=== PATIENT | female | born 1970 | race African-American/Black ===

== ENCOUNTER 2019-01-31 17:45 | Inpatient (IN) ==
[2019-01-31] MEDS ORDERED: LACTATED RINGERS 500 ML IV STA (17:57)
[2019-01-31] MEDS ORDERED: ONDANSETRON 4 MG/2 ML VIAL IV STA (17:57)
[2019-01-31] MEDS ORDERED: DIPH/TET/ACEL PERT BOOSTER VACCINE 0.5 ML VIAL IM ONE (17:57)
[2019-01-31] MEDS ORDERED: HYDROmorphone 2 MG/1 ML VIAL IV STA (17:57)
[2019-01-31 18:10] LABS: Basophils % 0.2 % (0.0-0.8); Eosinophils # 0.1 10*3/uL (0.0-0.87); Eosinophils % 0.9 % (0.00-10.9); Hematocrit 35.2 VOL% (35.7-47.0); Hemoglobin 11.2 GM/DL (12.0-16.0); Immature Granulocytes % 1.1 %; Immature Granulocytes Absolute 0.11 #; Lymphocytes # 1.8 10*3/uL (1.4-4.0); Lymphocytes % 17.7 % (21.3-54.2); Mean Corpuscular HGB Conc 31.8 GM/DL (32-36); Mean Corpuscular Hemoglobin 30 PG (27-34); Mean Corpuscular Volume 92.9 FL (87-102); Mean Platelet Volume 10.4 FL (9.6-12.0); Monocytes # 0.6 10*3/uL (0.11-0.8); Monocytes % 5.8 % (1.7-12.7); Neutrophils # 7.4 10*3/uL (1.4-7.4); Neutrophils % 74.3 % (38.7-73.9); Platelet Count 172 T/CUMM (130-400); Red Blood Count 3.79 MC/CUMM (3.8-5.5); Red Cell Distribution Width 13.8 % (9.3-17.3)
[2019-01-31 18:21] LABS: PT Patient Result 10.7 SECS; Partial Thromboplastin Time 23.1 SECS (0-40)
[2019-01-31 18:37] LABS: Alanine Aminotransferase 34 U/L (13-56); Albumin 3.4 G/DL (3.4-5.0); Alkaline Phosphatase 78 U/L (45-117); Amylase 64 U/L (25-115); Aspartate Amino Transferase 49 U/L (0-37); Bilirubin,Total < 0.39 MG/DL (0.2-1.0); Blood Urea Nitrogen 10 MG/DL (7-18); Calcium 8.4 MG/DL (8.5-10.1); Glucose 126 MG/DL (74-106); Osmolality,Calculated 281.3 MOS/KG (273-304); Sodium 141 MMOL/L (136-145); Total Protein 7.2 G/DL (6.4-8.3); Troponin I < 0.015 NG/ML (0.00-0.045)
[2019-01-31] MEDS ORDERED: POTASSIUM CHLORIDE 20 MEQ TABLET PO STA (19:23)
[2019-01-31 19:50] LABS: Apearance,Urine Slightly Hazy (Clear); Bilirubin,Urine Negative (Negative); Blood, Urine Moderate mg/dL (Negative); Glucose,Urine (UA) Negative (Negative); Ketones,Urine Negative (Negative); Mucus,Urine Occasional /LPF (Occasional); Nitrite,Urine Negative (Negative); Protein,Urine 30 MG/DL; RBC,Urine 52 /HPF (0-4); Squamous Epithelial Cell,Urine Occasional /HPF (0-10); Urine Color Yellow (Yellow); Urine Specific Gravity > 1.060 (1.001-1.035); Urine Urobilinogen < 2.0 EU/DL (0.2-1.0); WBC,Urine 45 /HPF (0-6)
[2019-01-31 19:53] LABS: Barbiturates Screen,Urine Negative (Negative); Benzodiazepines Screen,Urine Negative (Negative); Cannabinoid Screen,Urine Positive (Negative); Opiate Screen,Urine Negative (Negative); Phencyclidine Screen,Urine Negative (Negative)
[2019-01-31] MEDS ORDERED: ACETAMINOPHEN 325 MG TABLET PO PRN (21:55)
[2019-01-31] MEDS ORDERED: HYDROmorphone 2 MG/1 ML VIAL IV PRN (21:55)
[2019-01-31] MEDS: SODIUM CHLORIDE 0.9% 1,000 ML IV SCH (22:46)
[2019-01-31] MEDS: LEVOFLOXACIN INJ 750 MG in PREMIX 1 EACH IV SCH (22:49)
[2019-02-01] MEDS: ONDANSETRON 4 MG/2 ML VIAL IV PRN ×3 (00:07→16:31)
[2019-02-01 05:58] LABS: Basophils % 0.1 % (0.0-0.8); Hematocrit 30.8 VOL% (35.7-47.0); Hemoglobin 9.8 GM/DL (12.0-16.0); Immature Granulocytes % 0.4 %; Immature Granulocytes Absolute 0.05 #; Lymphocytes # 1.5 10*3/uL (1.4-4.0); Lymphocytes % 10.6 % (21.3-54.2); Mean Corpuscular HGB Conc 31.8 GM/DL (32-36); Mean Corpuscular Hemoglobin 30 PG (27-34); Mean Corpuscular Volume 93.6 FL (87-102); Mean Platelet Volume 10.6 FL (9.6-12.0); Monocytes # 1.2 10*3/uL (0.11-0.8); Monocytes % 8.4 % (1.7-12.7); Neutrophils # 11.2 10*3/uL (1.4-7.4); Neutrophils % 80.5 % (38.7-73.9); Platelet Count 149 T/CUMM (130-400); Red Blood Count 3.29 MC/CUMM (3.8-5.5); White Blood Count 13.9 T/CUMM (4-12)
[2019-02-01 06:25] LABS: Bilirubin,Total 0.5 MG/DL (0.2-1.0); Osmolality,Calculated 282.3 MOS/KG (273-304); Potassium 3.4 MMOL/L (3.5-5.1); Total Protein 6.8 G/DL (6.4-8.3)
[2019-02-01] MEDS ORDERED: ceFAZolin 1,000 MG in SYRINGE 1 EACH IV ONE (07:17)
[2019-02-01] MEDS ORDERED: diphenhydrAMINE CAP 25 MG CAPSULE PO PRN (09:36)
[2019-02-01] MEDS ORDERED: BISACODYL 10 MG SUPP RECTAL PRN (09:36)
[2019-02-01] MEDS ORDERED: PROMETHAZINE 25 MG/1 ML VIAL IM PRN (09:36)
[2019-02-01] MEDS ORDERED: LACTULOSE 20 GM/30 ML UDCUP PO PRN (09:36)
[2019-02-01] MEDS ORDERED: HYDROmorphone 2 MG/1 ML VIAL IV PRN ×2 (09:40→09:51)
[2019-02-01] MEDS ORDERED: PROPOFOL 200 MG/20 ML VIAL IV ONE (10:05)
[2019-02-01] MEDS ORDERED: SEVOFLURANE 1 UNIT/15 MINUTE INH ONE (10:06)
[2019-02-01] MEDS ORDERED: MIDAZOLAM 2 MG/2 ML VIAL ONE (10:06)
[2019-02-01] MEDS ORDERED: PHENYLEPHRINE 1 MG/10 ML SYRINGE IV ONE (10:07)
[2019-02-01] MEDS ORDERED: SUFentanil 50 MCG/ML AMP ONE (10:07)
[2019-02-01] MEDS ORDERED: GLYCOPYRROLATE 0.4 MG/2 ML VIAL ONE (10:07)
[2019-02-01] MEDS ORDERED: DEXAMETHASONE 4 MG/1 ML VIAL ONE (10:07)
[2019-02-01] MEDS ORDERED: NEOSTIGMINE 10 MG/10 ML VIAL ONE (10:07)
[2019-02-01] MEDS ORDERED: ACETAMINOPHEN 1,000 MG/100 ML VIAL IV ONE (10:07)
[2019-02-01] MEDS ORDERED: SUCCINYLCHOLINE 200 MG/10 ML VIAL ONE (10:07)
[2019-02-01] MEDS ORDERED: ROCURONIUM 100 MG/10 ML VIAL IV ONE (10:07)
[2019-02-01] MEDS ORDERED: ONDANSETRON 4 MG/2 ML VIAL ONE (10:07)
[2019-02-01] MEDS ORDERED: LACTATED RINGERS 1,000 ML IV ONE (10:08)
[2019-02-01] MEDS ORDERED: ALBUTEROL/IPRATROPIUM 3 ML NEB RESP TX PRN (10:36)
[2019-02-01] MEDS ORDERED: KETOROLAC 30 MG/1 ML VIAL IV ONE (10:36)
[2019-02-01] MEDS: GABAPENTIN 100 MG CAPSULE PO SCH ×2 (12:17→20:20)
[2019-02-01] MEDS: PANTOPRAZOLE 40 MG VIAL IV SCH (12:18)
[2019-02-01] MEDS: ALBUTEROL/IPRATROPIUM 3 ML NEB RESP TX SCH ×2 (13:50→19:53)
[2019-02-01] MEDS: ceFAZolin 1,000 MG in SYRINGE 1 EACH IV SCH (16:00)
[2019-02-01] MEDS: SODIUM CHLORIDE 0.9% 1,000 ML IV SCH (16:04)
[2019-02-01] MEDS: KETOROLAC 15 MG/1 ML VIAL IV SCH ×2 (17:16→22:44)
[2019-02-01] MEDS: LEVOFLOXACIN INJ 750 MG in PREMIX 1 EACH IV SCH (22:42)
[2019-02-02] MEDS: ceFAZolin 1,000 MG in SYRINGE 1 EACH IV SCH ×2 (00:51→08:44)
[2019-02-02] MEDS: ALBUTEROL/IPRATROPIUM 3 ML NEB RESP TX SCH ×4 (01:45→19:25)
[2019-02-02] MEDS: SODIUM CHLORIDE 0.9% 1,000 ML IV SCH (04:38)
[2019-02-02] MEDS: KETOROLAC 15 MG/1 ML VIAL IV SCH ×4 (04:39→23:03)
[2019-02-02 04:41] LABS: Basophils % 0.1 % (0.0-0.8); Hematocrit 25.8 VOL% (35.7-47.0); Hemoglobin 8.6 GM/DL (12.0-16.0); Immature Granulocytes % 0.5 %; Immature Granulocytes Absolute 0.07 #; Lymphocytes # 0.9 10*3/uL (1.4-4.0); Lymphocytes % 5.9 % (21.3-54.2); Mean Corpuscular HGB Conc 33.3 GM/DL (32-36); Mean Corpuscular Hemoglobin 31 PG (27-34); Mean Corpuscular Volume 91.5 FL (87-102); Mean Platelet Volume 10.7 FL (9.6-12.0); Monocytes # 1.1 10*3/uL (0.11-0.8); Monocytes % 7.3 % (1.7-12.7); Neutrophils # 12.9 10*3/uL (1.4-7.4); Neutrophils % 86.2 % (38.7-73.9); Platelet Count 109 T/CUMM (130-400); Red Blood Count 2.82 MC/CUMM (3.8-5.5); Red Cell Distribution Width 14.1 % (9.3-17.3)
[2019-02-02 05:31] LABS: Alanine Aminotransferase 27 U/L (13-56); Albumin 2.7 G/DL (3.4-5.0); Alkaline Phosphatase 64 U/L (45-117); Aspartate Amino Transferase 40 U/L (0-37); Bilirubin,Total < 0.39 MG/DL (0.2-1.0); Blood Urea Nitrogen 7 MG/DL (7-18); Calcium 8.2 MG/DL (8.5-10.1); Glucose 110 MG/DL (74-106); Osmolality,Calculated 279.3 MOS/KG (273-304); Potassium 3.5 MMOL/L (3.5-5.1); Sodium 141 MMOL/L (136-145); Total Protein 6.3 G/DL (6.4-8.3)
[2019-02-02] MEDS: PANTOPRAZOLE 40 MG VIAL IV SCH (08:44)
[2019-02-02] MEDS: GABAPENTIN 100 MG CAPSULE PO SCH ×2 (08:45→20:34)
[2019-02-03] MEDS: ALBUTEROL/IPRATROPIUM 3 ML NEB RESP TX SCH ×4 (01:10→21:15)
[2019-02-03] MEDS: KETOROLAC 15 MG/1 ML VIAL IV SCH ×4 (04:12→22:50)
[2019-02-03] MEDS: GABAPENTIN 100 MG CAPSULE PO SCH ×2 (09:26→21:04)
[2019-02-03] MEDS: PANTOPRAZOLE 40 MG VIAL IV SCH (09:27)
[2019-02-03] MEDS: ENOXAPARIN 40 MG/0.4 ML SYRINGE SUBCUT SCH (11:26)
[2019-02-04] MEDS: ALBUTEROL/IPRATROPIUM 3 ML NEB RESP TX SCH ×4 (00:38→19:29)
[2019-02-04] MEDS: KETOROLAC 15 MG/1 ML VIAL IV SCH ×4 (04:08→23:23)
[2019-02-04] MEDS: MAGNESIUM HYDROXIDE SUSP 30 ML UDCUP PO PRN (09:02)
[2019-02-04] MEDS: GABAPENTIN 100 MG CAPSULE PO SCH ×2 (09:03→20:40)
[2019-02-04] MEDS: PANTOPRAZOLE 40 MG VIAL IV SCH (09:04)
[2019-02-04] MEDS: ENOXAPARIN 40 MG/0.4 ML SYRINGE SUBCUT SCH (11:50)
[2019-02-05] MEDS: ALBUTEROL/IPRATROPIUM 3 ML NEB RESP TX SCH ×3 (01:15→13:00)
[2019-02-05] MEDS: KETOROLAC 15 MG/1 ML VIAL IV SCH ×2 (05:05→11:36)
[2019-02-05] MEDS: MAGNESIUM HYDROXIDE SUSP 30 ML UDCUP PO PRN (07:12)
[2019-02-05] MEDS: PANTOPRAZOLE 40 MG VIAL IV SCH (08:18)
[2019-02-05] MEDS: GABAPENTIN 100 MG CAPSULE PO SCH (08:18)
[2019-02-05 11:29] VITALS: BP 155/84
[2019-02-05] MEDS: ENOXAPARIN 40 MG/0.4 ML SYRINGE SUBCUT SCH (11:36)
== END 2019-02-05 15:10 | disposition home health service (06) | DRG 958 ==
LOC: N.ED 17:45 → N.EDINP 20:23 → N.3E 20:49
PROVIDERS: ADMIT Surgery; ATTEND Surgery